=== PATIENT | female | born 1985 | race Caucasian/White ===

== ENCOUNTER 2016-09-11 16:12 | Observation (INO) | payer MEDICAID, OTHER ==
[~2016-09-11] VITALS: Ht 157.5 cm; Wt 85.7 kg
[2016-09-11] MEDS ORDERED: ONDANSETRON HCL 4MG/2ML VIAL IV NR (17:00)
[2016-09-11] MEDS ORDERED: ACETAMINOPHEN 500MG TABLET PO NR (17:00)
[2016-09-11 17:49] LABS: CLARITY URINE CLEAR (CLEAR); COLOR URINE YELLOW (YELLOW); GLUCOSE URINE NEGATIVE (NEGATIVE); KETONES URINE NEGATIVE (NEGATIVE); LEUKOCYTE ESTERASE URINE 1+ (NEGATIVE); NITRITE URINE NEGATIVE (NEGATIVE); OCCULT BLOOD URINE NEGATIVE (NEGATIVE); PH URINE 6.5 (4.5-8.0); PROTEIN URINE NEGATIVE (NEGATIVE); SPECIFIC GRAVITY URINE 1.014 (1.005-1.030); UROBILINOGEN URINE 0.2 E.U./dL (0.2-1.0)
[2016-09-11 18:08] LABS: CHLORIDE 106 mEq/L (98-107)
[2016-09-11 18:14] LABS: CARBON DIOXIDE 24 mEq/L (21-32)
[2016-09-11] MEDS ORDERED: MVI, ADULT NO.1 10 ML in SODIUM CHLORIDE 0.9% 1,000 ML IV NR ×2 (18:30)
== END 2016-09-11 19:08 | disposition home or self-care (01) ==
LOC: L&D 16:12
PROVIDERS: ADMIT Specialist; ATTEND Specialist
DX: O21.2 Late vomiting of pregnancy (principal); Z3A.27 27 weeks gestation of pregnancy
CPT/HCPCS: 36415; 80051; 81001; 82565; 84520; 96365; 96375; 99281; G0378; J2405; J3490; J7040; 96360; 96361; J7030

== ENCOUNTER 2016-10-07 10:05 | Observation (INO) | payer OTHER ==
[~2016-10-07] VITALS: Ht 157.5 cm; Wt 85.7 kg
[2016-10-07] MEDS ORDERED: PNV1TABL76 PO (10:43)
[2016-10-07 11:21] LABS: KETONES URINE NEGATIVE (NEGATIVE); LEUKOCYTE ESTERASE URINE 2+ (NEGATIVE); NITRITE URINE NEGATIVE (NEGATIVE); OCCULT BLOOD URINE NEGATIVE (NEGATIVE); PH URINE 6.5 (4.5-8.0); PROTEIN URINE NEGATIVE (NEGATIVE); SPECIFIC GRAVITY URINE 1.022 (1.005-1.030); UROBILINOGEN URINE 0.2 E.U./dL (0.2-1.0)
[2016-10-07 11:23] LABS: CLARITY URINE HAZY (CLEAR); COLOR URINE YELLOW (YELLOW)
[2016-10-07] MEDS ORDERED: LACTATED RINGERS 1,000 ML IV STA (12:11)
[2016-10-07] MEDS ORDERED: METRONIDAZOLE 500 MG PREMIX 2,000 MG in BAG 0 EACH IV SCH (12:15)
[2016-10-07] MEDS ORDERED: METRONIDAZOLE 500MG TABLET PO NR (12:22)
[2016-10-07] MEDS ORDERED: LACTATED RINGERS 1,000 ML IV SCH ×2 (12:30)
== END 2016-10-07 12:35 | disposition home or self-care (01) ==
LOC: L&D 10:05
PROVIDERS: ADMIT Obstetrics & Gynecology; ATTEND Obstetrics & Gynecology
DX: O26.893 Other specified pregnancy related conditions, third trimester (principal); M54.9 Dorsalgia, unspecified; Z3A.31 31 weeks gestation of pregnancy
CPT/HCPCS: 81001; G0378; 99281